=== PATIENT | female | born 1970 | race American Indian/Alaskan Native ===

== ENCOUNTER 2017-03-11 10:54 | Day surgery (SDC) | payer OTHER ==
[2017-03-06 13:42] VITALS: BMI 28.3
[2017-03-11] MEDS ORDERED: Propofol 10 mg/ml Inj (20 ML) ONE (13:32)
[2017-03-11] MEDS ORDERED: Sodium Chloride 0.9% 1,000 ML IV SCH (14:15)
[2017-03-11 14:44] VITALS: RESP 16
[2017-03-11 15:38] VITALS: BP 118/79; PULSE 64; TEMP 98.3; O2SAT 99
== END 2017-03-11 15:34 | disposition home or self-care (01) ==
LOC: ENDO 10:54
PROVIDERS: ATTEND Internal Medicine Gastroenterology
DX: K21.9 Gastro-esophageal reflux disease without esophagitis (principal); K29.50 Unspecified chronic gastritis without bleeding; K59.00 Constipation, unspecified; K64.8 Other hemorrhoids; K56.2 Volvulus; I10 Essential (primary) hypertension
CPT/HCPCS: 43239; 45378; 84703; 88305; 88342; J2704; J7040 ×2

== ENCOUNTER 2018-07-31 12:50 | Outpatient (CLI) | payer OTHER | END 2018-07-31 12:51 | disposition home or self-care (01) | LOC: RAD 12:50 | DX: R10.2 Pelvic and perineal pain (principal); R10.84 Generalized abdominal pain; N84.1 Polyp of cervix uteri; Z12.31 Encounter for screening mammogram for malignant neoplasm of breast ==

== ENCOUNTER 2018-08-07 08:34 | Outpatient (CLI) | payer OTHER | END 2018-08-07 08:35 | disposition home or self-care (01) | LOC: LAB 08:34 ==

== ENCOUNTER 2018-08-10 07:10 | Outpatient (CLI) | payer OTHER | END 2018-08-10 07:11 | disposition home or self-care (01) | LOC: CARDIO 07:10 | DX: R07.89 Other chest pain (principal) ==

== ENCOUNTER 2018-09-09 08:35 | Outpatient (CLI) | payer OTHER | END 2018-09-09 08:36 | disposition home or self-care (01) | LOC: RAD 08:35 ==